=== PATIENT | male | born 1985 | race Two or more races ===

== ENCOUNTER 2018-08-10 15:08 | Emergency (ER) | payer OTHER ==
[~2018-08-10] VITALS: Ht 170.2 cm; Wt 111.1 kg
[2018-08-10] MEDS ORDERED: METO-358 PO (15:21)
[2018-08-10] MEDS ORDERED: LISI1TAB9 PO (15:21)
[2018-08-10] MEDS ORDERED: ASPI81TA31 PO (15:21)
[2018-08-10] MEDS ORDERED: AMLO5TAB4 PO (15:21)
--- NOTE | 2018-08-10 15:43 | NUR ---
MALINDA POWELL AT BEDSIDE FOR MSE.
--- NOTE | 2018-08-10 15:45 | NUR ---
PT A/OX4, BIB [facility], C/O HEADACHE. PER PT'S REPORT, HE WAS AT WORK WHEN HE SUDDENLY FELT HEADACHE AND "DIDN'T FEEL RIGHT". PT WORKS AT A DOCTOR'S OFFICE AND REPORTS HIS BLOOD PRESSURE WAS ELEVATED RIGHT AFTER THE INCIDENT. VSS. PT DOES NOT APPEAR TO BE IN ANY APPARENT DISTRESS. PT DENIES PAIN, C/P, SOB, N/V/D.
[2018-08-10 16:10] LABS: BASOPHILS # (AUTO) 0.1 K/uL (0.0-8.0); BASOPHILS % (AUTO) 0.7 % (0.0-2.0); EOSINOPHILS # (AUTO) 0.2 K/uL (0.0-0.7); EOSINOPHILS % (AUTO) 2.3 % (0.0-7.0); HEMATOCRIT 42.1 % (36.7-47.1); LYMPHOCYTES # (AUTO) 2.5 K/uL (20.0-40.0); LYMPHOCYTES % (AUTO) 30.4 % (20.5-51.5); MEAN CORPUSCULAR HEMOGLOBIN 30.6 uug (23.8-33.4); MEAN CORPUSCULAR HGB CONC 36 g/dL (32.5-36.3); MONOCYTES # (AUTO) 0.6 K/uL (2.0-10.0); MONOCYTES % (AUTO) 6.8 % (0.0-11.0); NEUTROPHILS % (AUTO) 59.8 % (38.5-71.5); PLATELET COUNT (AUTO) 207 K/uL (152-348); WHITE BLOOD COUNT (AUTO) 8.4 K/uL (3.6-10.2)
[2018-08-10 16:18] LABS: CREATININE 0.9 mg/dL (0.6-1.3)
[2018-08-10] MEDS ORDERED: POTASSIUM CHLORIDE 20 MEQ TAB.PRT.SR ONE (16:53)
--- NOTE | 2018-08-10 16:57 | NUR ---
Patient discharged to home in stable conditon. Written and verbal after care instructions given. Patient verbalizes understanding of instructions. ALL BELONGINGS W/ PT. PT SELF-AMBULATED W/O DIFFICULTY. 20G IV ACCESS IN LAC REMOVED PRIOR TO D/C - INNER CANNULA INTACT.
[2018-08-10 16:58] VITALS: BP 130/82
[2018-08-10] MEDS ORDERED: POTASSIUM CHLORIDE 20 MEQ TAB.PRT.SR PO ONE (17:00)
== END 2018-08-10 17:00 | disposition home or self-care (01) ==
LOC: ER 15:08
DX: R51 Headache (principal); I10 Essential (primary) hypertension; E87.6 Hypokalemia; Z86.73 Personal history of transient ischemic attack (TIA), and cerebral infarction without residual deficits; Z79.82 Long term (current) use of aspirin; Z79.899 Other long term (current) drug therapy
CPT/HCPCS: 36415; 70030-TC; 70450; 71045; 85025; 85730; 93005; A4663